=== PATIENT | female | born 1990 | race Caucasian/White ===

== ENCOUNTER 2016-06-29 06:10 | Day surgery (SDC) | payer MEDICAID ==
[2016-06-28 12:31] LABS: HEMATOCRIT 44.6 % (36.0-48.0); HEMOGLOBIN 15.5 g/dL (12-16); MCHC 34.8 g/dL (31.0-37.0); MCV 86.4 fL (80.0-100.0); MEAN PLATELET VOLUME 9.6 fL (7.4-10.4); RBC 5.16 10x6/uL (4.00-5.40); RDW 13.2 % (11.5-14.5); WBC 8.3 10x3/uL (4.8-10.8)
[~2016-06-29] VITALS: Ht 157.5 cm; Wt 78.5 kg
[2016-06-29 06:28] VITALS: BP 113/66; Ht 157.5 cm; Wt 78.5 kg
[2016-06-29 07:18] LABS: HCG URINE NEGATIVE (NEGATIVE)
[2016-06-29] MEDS ORDERED: CYCLOBENZAPRINE10 MG PO (09:29)
[2016-06-29] MEDS ORDERED: HYDROCODON-ACE1 EAC7 PO (09:29)
--- NOTE | 2016-06-29 10:57 | OP ---
PATIENT NAME: DANNY ULRICH MEDICAL RECORD: [id number] :89 LOCATION:[facility] ADMISSION DATE: SURGEON: RL RAMIREZ MD DATE OF OPERATION: 06/29/2016 SURGEON: Rl Ramirez MD PREOPERATIVE DIAGNOSIS: Ventral abdominal hernia. POSTOPERATIVE DIAGNOSIS: Ventral abdominal hernia. PROCEDURE PERFORMED: Laparoscopic ventral hernia repair with Ventralight ST mesh. ANESTHESIA: General. COMPLICATIONS: None. SPECIMENS: None. Case was clean. ESTIMATED BLOOD LOSS: 10 cc. OPERATIVE COURSE: After consent was obtained, the patient was taken to the operating room and placed in the supine position ____ anesthesia was given via endotracheal intubation after a timeout was taken to confirm the correct patient and procedure. The abdomen was prepped and draped in typical sterile fashion. An Ioban dressing was placed. Local anesthetic was injected in the left upper quadrant at Mccoy's point. A stab incision was made with an 11-blade scalpel. Using a 5-mm bladeless optical trocar, the abdomen was entered under direct laparoscopic vision. Adequate pneumoperitoneum was achieved. The abdominal cavity was inspected. No evidence of bowel injury. No evidence of bleeding. The patient was then placed into slight Trendelenburg position. All remaining trocars were then placed after the administration of local anesthetic under direct laparoscopic vision. An 11-mm trocar in the left ____ quadrant and 5-mm trocar in the left lower quadrant. The preperitoneal ____, there was an incarcerated ventral abdominal hernia containing greater omentum. The hernia was reduced. The hernia sac was excised. The preperitoneal fat was taken down using electrocautery. A second small hernia defect was noted in the more superior midline portion. There was a hernia just superior to the umbilicus and it was approximately 2 cm. A second 2cm hernia defect was noted in the more superior midline position. The preperitoneal fat was taken down. Again, the hernia defect at this site was approximately 2 cm. Once the preperitoneal fat was dissected, a 4 [address] mesh with Echo positioning system was placed into the abdomen through the 11-mm trocar and the echo positioning system was deployed, the mesh was positioned to cover both hernia defects with an appropriate 5 cm overlap. Next, the mesh was secured to the abdominal wall using the SecureStrap tack device. The Echo positioning system was removed intact. Once the Echo positioning system was removed, a second row of tacks were used in a double crown fashion, secured the mesh in place. At this time, the abdominal cavity was copiously irrigated and suctioned. Careful attention was paid to hemostasis. There was no active bleeding. The abdominal cavity was inspected. There is no evidence of bowel injury. No evidence of bleeding. At this time, all remaining instruments were removed. The abdomen was desufflated. OPERATIVE REPORT [id number] DANNY ULRICH Trocars were removed. Skin was closed with 4-0 Monocryl, Mastisol and Steri-Strips. At the end of the case, all needle and instrument counts were correct. No complications occurred. The patient was extubated and transferred to the PACU in stable condition. TRANSINT:[id number] Voice Confirmation ID: [id number] DOCUMENT ID: [id number] RL RAMIREZ MD at 1057 CC: [id number] DICTATION DATE: 06/29/16934 [employer] TE[employer]ER: 06/29/16 0957 [address] [facility] [address] [id number]
--- NOTE | 2016-06-29 11:23 | NUR ---
1105 DR. ASHLEY BABIN, ORDERS GIVEN
--- NOTE | 2016-06-29 11:31 | NUR ---
1120 PT. LOOKING AT HER PHONE, TALKING CALMLY WITH HER GRANDMOTHER
== END 2016-06-29 12:15 | disposition home or self-care (01) ==
LOC: D.OPS 06:10 → D.PAN 08:00 → D.OPS 08:00
PROVIDERS: Anesthesiology; Surgery
DX: K43.9 Ventral hernia without obstruction or gangrene (principal); F17.200 Nicotine dependence, unspecified, uncomplicated

== ENCOUNTER 2016-07-05 14:58 | Emergency (ER) | payer MEDICAID ==
[2016-06-29 06:28] VITALS: BMI 31.7
[~2016-07-05 14:58] MED LIST: CYCLOBENZAPRINE10 MG PO; HYDROCODON-ACE1 EAC7 PO
[2016-07-05 17:17] LABS: APPEARANCE CLEAR (CLEAR); COLOR YELLOW (YELLOW)
[2016-07-05 17:18] LABS: BACTERIA FEW /hpf (NONE SEEN); BILIRUBIN NEGATIVE (NEGATIVE); EPITHELIAL CELLS 0-5 /hpf (0-5); GLUCOSE NEGATIVE (NEGATIVE); KETONE NEGATIVE (NEGATIVE); LEUKOCYTE ESTERASE NEGATIVE (NEGATIVE); NITRITE NEGATIVE (NEGATIVE); PROTEIN NEGATIVE (NEGATIVE); RED CELLS - URINE 0-5 /hpf (0-5); UROBILINOGEN NORMAL (NORMAL); WHITE CELLS - URINE 0-5 /hpf (0-5)
[2016-07-05 17:47] LABS: BASOPHILS 0.3 % (0.0-2.0); EOSINOPHILS 2.6 % (0-7); HEMATOCRIT 45.9 % (36.0-48.0); HEMOGLOBIN 15.7 g/dL (12-16); IMMATURE GRANULOCYTES 0.6 % (0-5); LYMPHOCYTES 26.3 % (15-50); MCH 30.3 pg (26.0-34.0); MCHC 34.2 g/dL (31.0-37.0); MCV 88.4 fL (80.0-100.0); MEAN PLATELET VOLUME 9.4 fL (7.4-10.4); MONOCYTES 7.2 % (2-11); PLATELET COUNT 262 10x3/uL (130-400); RBC 5.19 10x6/uL (4.00-5.40); RDW 13.5 % (11.5-14.5)
[2016-07-05 18:08] LABS: ALBUMIN 3.7 g/dL (3.4-5.0); ALKALINE PHOSPHATASE 119 U/L (46-116); ALT (SGPT) 119 U/L (10-68); BILIRUBIN - TOTAL 0.35 mg/dL (0.2-1.3); CALC OSMOLALITY 270 mosm/kg (275-300); CALCIUM 9.7 mg/dL (8.5-10.1); CARBON DIOXIDE 22.4 mmol/L (21.0-32.0); CHLORIDE - SERUM 102 mmol/L (98-107); CREATININE - SERUM 0.7 mg/dL (0.6-1.3); GLUCOSE 104 mg/dL (74-106); POTASSIUM - SERUM 4.3 mmol/L (3.5-5.1); PROTEIN - SERUM 7.6 g/dL (6.4-8.2); SODIUM 137 mmol/L (136-145); UREA NITROGEN 5 mg/dL (7-18); eGFR NON AFRICAN AMERICAN > 90 mL/min (90-120)
== END 2016-07-05 18:48 | disposition home or self-care (01) ==
LOC: D.ER 14:58
PROVIDERS: Emergency Medicine
DX: G89.18 Other acute postprocedural pain (principal); F17.200 Nicotine dependence, unspecified, uncomplicated